=== PATIENT | male | born 1960 | race Caucasian/White ===

== ENCOUNTER 2018-03-25 13:35 | Observation (INO) ==
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
[2018-03-25] MEDS ORDERED: Sodium Chlor 0.9% Inj 500 ML IV.SIG SCH ×2 (14:00→16:00)
[2018-03-25 14:13] LABS: Baso % (Auto) 0.2 % (0.0-2.0); Eos # (Auto) 0.1 th/mm3 (0.0-0.4); Eos % (Auto) 0.7 % (0.0-4.0); Hematocrit 41.6 % (39.0-51.0); Hemoglobin 14.5 gm/dL (13.0-17.0); Lymph # (Auto) 2.2 th/mm3 (1.0-4.8); Mean Corpuscular HGB Conc 34.8 % (32.0-36.0); Mean Corpuscular Volume 92.2 fL (80.0-100.0); Mean Platelet Volume 7.2 fL (7.0-11.0); Mono # (Auto) 1.4 th/mm3 (0.0-0.9); Neut # (Auto) 11.8 th/mm3 (1.8-7.7); Neut % (Auto) 76.1 % (16.0-70.0); Platelet Count 250 th/mm3 (150-450); Red Blood Count 4.51 mil/mm3 (4.50-5.90); Red Cell Distribution Width 13.5 % (11.6-17.2); White Blood Count 15.5 th/mm3 (4.0-11.0)
[2018-03-25 14:20] LABS: Activated Partial Thrombo Time 24.7 sec (24.3-30.1); Prothrombin Time 10.6 sec (9.8-11.6)
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
[2018-03-25] MEDS ORDERED: Morphine Inj 4 MG/ML Vial IV.PUSH ONE (15:13)
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
[2018-03-25] MEDS ORDERED: Bisacodyl 10 MG Supp RECTAL PRN (18:32)
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
[2018-03-25] MEDS ORDERED: Dextrose 50% in Water 50 ML Vial IV.PUSH PRN (19:42)
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
[2018-03-25] MEDS ORDERED: Acetaminophen 325 MG Tablet PO PRN (20:00)
[2018-03-25] MEDS ORDERED: Temazepam 15 MG Capsule PO PRN (20:00)
[2018-03-25] MEDS: Isosorbide Mononitrate 60 MG ER 24HR Tablet (Imdur) PO SCH (22:12)
[2018-03-25] MEDS: Senna/Docusate Sodium 8.6/50 MG Tablet PO SCH (22:12)
[2018-03-25] MEDS: Ranolazine 500 MG 12HR ER Tablet PO SCH (22:13)
[2018-03-25] MEDS: Heparin - SQ 10,000 UNITS/ML Vial SQ SCH (22:14)
[2018-03-25] MEDS ORDERED: Insulin Detemir Inj 1,000 UNIT/10 ML Vial SQ ONE (22:30)
[2018-03-25] MEDS: Insulin NovoLOG Aspart Correctional Sugar Inj SQ SCH (22:56)
[2018-03-26] MEDS: oxyCODONE/Acetaminophen 10/325 Tablet PO PRN ×2 (01:07→10:13)
[2018-03-26] MEDS: Insulin NovoLOG Aspart Correctional Sugar Inj SQ SCH ×5 (03:43→21:15)
[2018-03-26] MEDS: Heparin - SQ 10,000 UNITS/ML Vial SQ SCH ×3 (04:50→19:15)
[2018-03-26] MEDS: Isosorbide Mononitrate 60 MG ER 24HR Tablet (Imdur) PO SCH ×2 (08:15→21:17)
[2018-03-26] MEDS: Spironolactone 25 MG Tablet PO SCH (08:16)
[2018-03-26] MEDS: Ranolazine 500 MG 12HR ER Tablet PO SCH ×2 (08:16→21:17)
[2018-03-26] MEDS: Senna/Docusate Sodium 8.6/50 MG Tablet PO SCH ×2 (08:18→21:18)
[2018-03-26] MEDS ORDERED: Insulin Detemir Inj 1,000 UNIT/10 ML Vial SQ SCH (09:00)
[2018-03-26 09:08] LABS: Baso % (Auto) 0.2 % (0.0-2.0); Eos % (Auto) 0.1 % (0.0-4.0); Hematocrit 41.4 % (39.0-51.0); Hemoglobin 14.6 gm/dL (13.0-17.0); Lymph # (Auto) 2.3 th/mm3 (1.0-4.8); Lymph % (Auto) 16.3 % (9.0-44.0); Mean Corpuscular HGB Conc 35.2 % (32.0-36.0); Mean Corpuscular Hemoglobin 32.1 pg (27.0-34.0); Mean Corpuscular Volume 91.2 fL (80.0-100.0); Mean Platelet Volume 7.3 fL (7.0-11.0); Mono # (Auto) 1.4 th/mm3 (0.0-0.9); Mono % (Auto) 10.2 % (0.0-8.0); Neut # (Auto) 10.2 th/mm3 (1.8-7.7); Neut % (Auto) 73.2 % (16.0-70.0); Platelet Count 248 th/mm3 (150-450); Red Blood Count 4.54 mil/mm3 (4.50-5.90); Red Cell Distribution Width 13.4 % (11.6-17.2); White Blood Count 13.9 th/mm3 (4.0-11.0)
[2018-03-26 09:33] LABS: Calcium 9.2 mg/dL (8.5-10.1); Carbon Dioxide 24.7 meq/L (21.0-32.0); Potassium 4.8 meq/L (3.5-5.1)
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
[2018-03-26] MEDS ORDERED: Insulin Detemir Inj 1,000 UNIT/10 ML Vial SQ ONE (16:30)
[2018-03-26] MEDS ORDERED: Sod Chloride 0.9% Inj 1,000 ML IV.CONT SCH (17:45)
[2018-03-27] MEDS: oxyCODONE/Acetaminophen 10/325 Tablet PO PRN ×2 (00:08→05:52)
[2018-03-27] MEDS: Insulin NovoLOG Aspart Correctional Sugar Inj SQ SCH ×3 (04:35→14:10)
[2018-03-27] MEDS: Heparin - SQ 10,000 UNITS/ML Vial SQ SCH ×2 (04:38→14:11)
[2018-03-27 08:28] LABS: Baso % (Auto) 0.2 % (0.0-2.0); Eos # (Auto) 0.1 th/mm3 (0.0-0.4); Eos % (Auto) 0.7 % (0.0-4.0); Hematocrit 38.5 % (39.0-51.0); Hemoglobin 13.2 gm/dL (13.0-17.0); Lymph # (Auto) 1.8 th/mm3 (1.0-4.8); Lymph % (Auto) 15.6 % (9.0-44.0); Mean Corpuscular HGB Conc 34.4 % (32.0-36.0); Mean Corpuscular Hemoglobin 31.8 pg (27.0-34.0); Mean Corpuscular Volume 92.5 fL (80.0-100.0); Mean Platelet Volume 7.3 fL (7.0-11.0); Mono # (Auto) 1.3 th/mm3 (0.0-0.9); Mono % (Auto) 11.2 % (0.0-8.0); Neut # (Auto) 8.3 th/mm3 (1.8-7.7); Neut % (Auto) 72.3 % (16.0-70.0); Platelet Count 215 th/mm3 (150-450); Red Blood Count 4.16 mil/mm3 (4.50-5.90); Red Cell Distribution Width 13.4 % (11.6-17.2); White Blood Count 11.5 th/mm3 (4.0-11.0)
[2018-03-27 08:39] VITALS: RESP 12
[2018-03-27] MEDS: Spironolactone 25 MG Tablet PO SCH (08:52)
[2018-03-27] MEDS: Senna/Docusate Sodium 8.6/50 MG Tablet PO SCH (08:53)
[2018-03-27] MEDS: Isosorbide Mononitrate 60 MG ER 24HR Tablet (Imdur) PO SCH (08:54)
[2018-03-27] MEDS: Ranolazine 500 MG 12HR ER Tablet PO SCH (08:54)
[2018-03-27 08:55] LABS: Calcium 8.8 mg/dL (8.5-10.1); Carbon Dioxide 26.6 meq/L (21.0-32.0); Potassium 4.4 meq/L (3.5-5.1)
[2018-03-27] MEDS ORDERED: Insulin Detemir Inj 1,000 UNIT/10 ML Vial SQ SCH (09:00)
[2018-03-27] MEDS ORDERED: Lisinopril 5 MG Tablet PO SCH (09:00)
[2018-03-27 11:32] VITALS: PULSE 90
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
[2018-03-27] MEDS ORDERED: Sod Chloride 0.9% Inj 500 ML IV.CONT SCH (14:00)
[2018-03-27 15:35] VITALS: BP 101/67; TEMP 98.3; O2SAT 94
== END 2018-03-27 17:54 ==
LOC: NEDA 13:35 → NEPC 13:35 → NEPHCDU 19:39
PROVIDERS: ADMIT Hospitalist; ATTEND Hospitalist
DX: I25.10 Atherosclerotic heart disease of native coronary artery without angina pectoris; Z79.4 Long term (current) use of insulin; S40.012A Contusion of left shoulder, initial encounter; V48.5XXA Car driver injured in noncollision transport accident in traffic accident, initial encounter; E87.1 Hypo-osmolality and hyponatremia; Z79.82 Long term (current) use of aspirin; R10.32 Left lower quadrant pain; E11.65 Type 2 diabetes mellitus with hyperglycemia; Z85.528 Personal history of other malignant neoplasm of kidney; S20.229A Contusion of unspecified back wall of thorax, initial encounter; Z95.1 Presence of aortocoronary bypass graft; Z79.899 Other long term (current) drug therapy; R07.9 Chest pain, unspecified; I11.9 Hypertensive heart disease without heart failure; E78.5 Hyperlipidemia, unspecified; J44.9 Chronic obstructive pulmonary disease, unspecified; I25.2 Old myocardial infarction; Z95.810 Presence of automatic (implantable) cardiac defibrillator; Z87.891 Personal history of nicotine dependence; R22.2 Localized swelling, mass and lump, trunk